=== PATIENT | male | born 1945 | race Caucasian/White ===

== ENCOUNTER 2019-11-21 09:33 | Outpatient (CLI) | payer MEDICARE, OTHER ==
--- NOTE | 2019-11-21 10:51 | RAD ---
4 views lumbar spine: 11/21/2019 COMPARISON: None HISTORY: Lumbar radiculopathy, low back pain FINDINGS: There is facet hypertrophy bilaterally at L4-5 and L5-S1. On the neutral lateral exam there is 6 mm of anterolisthesis of L4 on L5. There is mild posterior osteophyte formation at L3-4 with associated mild posterior disc space narrowing. On the flexion imaging there is anterolisthesis of L4 on L5 measuring approximately 9 mm and there is mild anterolisthesis on flexion imaging at L5-S1 measuring approximately 4 mm. On the extension imaging the anterolisthesis at L4-5 measures 4 mm and is not appreciated at L5-S1. IMPRESSION: Lower lumbar spine facet hypertrophy with anterolisthesis of L4 on L5, most prominent wit h flexion.
--- NOTE | 2019-11-21 10:52 | CT ---
CT LUMBAR SPINE WITHOUT CONTRAST: INDICATIONS: 73-year-old male with low back pain, radiculopathy and left leg paresthesias; probable has been occur ring for 15 years but recently has worsened. COMPARISON: Lumbar spinal radiographs dated November 21, 2019 at 10:01 AM TECHNIQUE: Multiple CT images were obtained of the lumbar spine without contrast. Axial, coronal, and sagittal r eformatted images were constructed from the raw data. FINDINGS: Visualized retroperitoneal and paravertebral soft tissues: There are mild vascular calcifications see n involving the visualized vasculature. The gallbladder is surgically absent. No lymphadenopathy or free fluid is demonstrated. There are a few scattered colonic diverticula involving visualized aspect s of the sigmoid colon. Spinal alignment: There is grade 1 anterolisthesis of L4 on L5. Spinal alignment otherwise is within normal limits. Spinal instrumentation or postsurgical change: None At L5-S1, at the L5-S1 level, there is a mild broad-based disc bulge with loss of disc space height a nd facet hypertrophy inducing at least moderate bilateral neural foraminal narrowing. No appreciable central canal narrowing is evident. There is moderate right and mild left facet osteoarth rosis.. At L4-5, there is a broad-based disc bulge with severe facet degenerative change and suspected ligame ntum flavum hypertrophy inducing at least moderate osseous central canal narrowing with [id number] bilateral osseous neural foraminal narrowing. At L3-4, there is a broad-based disc bulge with facet hypertrophy and suspected ligament flavum hyper trophy at least inducing mild central canal narrowing with at least mild bilateral neural foraminal narrowing. At L2-3, there is a broad-based bulge but no definite appreciable central canal or neural foraminal n arrowing. At L1-L2, there is a minimal broad-based bulge but no appreciable central canal or neural foraminal n arrowing At T12-L1, there is no appreciable central canal or neuroforaminal narrowing. IMPRESSION: 1. Moderate spondylosis of the lumbar spine most pronounced at L4-5 where there is grade 1 anterolis thesis, severe facet osteoarthrosis and a broad-based disc bulge inducing at least moderate osseous central canal narrowing and mild to moderate bilateral osseous neural foraminal narrowing. 2. Moderate bilateral osseous neural foraminal narrowing at L5-S1 due to loss of disc space height, f acet hypertrophy and a broad-based disc bulge. 3. Mild suspected central canal and bilateral neural foraminal narrowing at L3-4 due to degenerative change.
--- NOTE | 2019-11-21 11:17 | MRI ---
MR the lumbar spine without contrast: 11/21/2019 History: Back pain COMPARISON: None. TECHNIQUE: Multiplanar multisequence MR images were obtained of lumbar spine without IV contrast FINDINGS: On the basis of 5 lumbar type vertebral bodies, conus medullaris terminates at [id number] level. Sagittal STIR imaging demonstrates no focal area of osseous marrow edema. T12-L1:Intervertebral disc height and signal intensity within normal limits. No central canal or neur al foraminal stenosis. L1-2:There is disc desiccation and mild disc space narrowing. Mild bilateral facet hypertrophy with n o significant central canal or neural foraminal stenosis. L2-3:There is mild disc desiccation. Mild bilateral facet hypertrophy. No significant central canal o r neural foraminal stenosis. L3-4:There is mild disc space narrowing with disc desiccation. Bilateral facet hypertrophy and hypert rophy of the ligamentum flavum noted. Mild bilateral neural foraminal stenosis. No significant central canal stenosis. L4-5:Severe bilateral facet hypertrophy with prominent hypertrophy of the ligamentum flavum. There is disc space narrowing with disc desiccation and mild disc bulge. Mild anterolisthesis noted measuring approximately 5 mm. Moderate central canal stenosis/right lateral recess stenosis. Mild/mod erate bilateral neural foraminal stenosis. L5-S1:Mild disc space narrowing with disc desiccation and mild disc bulge. Mild central canal stenosi s. Bilateral facet hypertrophy, left greater than right. Mild left neural foraminal stenosis. No significant right neural foraminal stenosis. Image retroperitoneal structures demonstrateno acute findings. IMPRESSION: Multilevel lumbar spine degenerative change, most prominent at the L4-5 level as described above.
== END 2019-11-21 09:34 | disposition home or self-care (01) ==
LOC: BICMRI 09:33
PROVIDERS: ATTEND Physician Assistant Surgical
DX: M47.26 Other spondylosis with radiculopathy, lumbar region (principal); R20.2 Paresthesia of skin; M54.5 Low back pain; M48.07 Spinal stenosis, lumbosacral region; M43.16 Spondylolisthesis, lumbar region
CPT/HCPCS: 72110; 72131; 72148

== ENCOUNTER 2020-03-19 06:34 | Outpatient (CLI) | payer MEDICARE, OTHER ==
[2020-03-19 11:07] LABS: Hemoglobin 16.3 g/dL (14.0-18.0); Mean Corpuscular HGB CONC 32.4 g/dL (32.0-36.0); Mean Corpuscular Hemoglobin 30.4 pg (27.0-31.0); Mean Platelet Volume 10.4 fL (7.4-10.4); Platelet Count 237 thou/uL (130-400); Red Blood Cell (RBC) Count 5.35 mill/uL (4.70-6.10); White Blood Cell (WBC) Count 7.2 thou/uL (4.8-10.8)
[2020-03-19 12:10] LABS: Anion Gap 13 mmol/L (10-20); BUN (Urea Nitrogen) 14 mg/dL (8.4-25.7); Calc. Creatinine Clearance 0 mL/min (70-130); Calcium 9.2 mg/dL (7.8-10.44); Carbon Dioxide 23 mmol/L (23-31); Chloride 110 mmol/L (98-107); Estimated GFR-MDRD 70; Glucose 100 mg/dL (83-110); Potassium 4.4 mmol/L (3.5-5.1); Sodium 142 mmol/L (136-145)
[2020-03-19 12:22] LABS: INR-International Normal Ratio 0.9; Prothrombin Time 12.5 sec (12.0-14.7)
[2020-03-19 12:23] LABS: PTT 33.2 sec (22.9-36.1)
[2020-03-20 12:15] LABS: SARS-CoV-2 MS2 Positive; SARS-CoV-2 N Gene Negative; SARS-CoV-2 S Gene Negative; SARS-CoV-2 orf1ab Negative
--- NOTE | 2020-03-22 11:47 | EKG ---
Test Reason : Blood Pressure : / mmHG Vent. Rate : 057 BPM Atrial Rate : 057 BPM P-R Int : 172 ms QRS Dur : 088 ms QT Int : 424 ms P-R-T Axes : 060 -32 035 degrees QTc Int : 412 ms Sinus bradycardia Left axis deviation Abnormal ECG Confirmed by EMMETT DALE ([id number]) on 03/22/2020 11:46:46 AM Referred By: STEPHANIE Confirmed By:EMMETT DALE
== END 2020-03-19 06:35 | disposition home or self-care (01) ==
LOC: LABBT 06:34
PROVIDERS: ATTEND Surgery
DX: Z01.818 Encounter for other preprocedural examination (principal); Z11.59 Encounter for screening for other viral diseases; M54.16 Radiculopathy, lumbar region; M48.061 Spinal stenosis, lumbar region without neurogenic claudication
CPT/HCPCS: 80048; 85027; 85610; 85730; 93005; U0003; 87635; 93010

== ENCOUNTER 2020-03-23 07:48 | Day surgery (SDC) | payer MEDICARE, OTHER ==
[2020-03-18 12:15] VITALS: BMI 31.0
[2020-03-23] MEDS ORDERED: Fentanyl 100 MCG/2 ML VIAL ONE ×4 (08:23→13:43)
[2020-03-23] MEDS ORDERED: Lidocaine 2% Jelly 5 ML TUBE ONE (08:24)
[2020-03-23] MEDS ORDERED: Thrombin 5000 UNITS/5 ML VIAL ONE (08:36)
[2020-03-23] MEDS ORDERED: Ondansetron PF 4 MG/2 ML Vial IVP PRN (11:23)
[2020-03-23] MEDS ORDERED: Acetaminophen 325 MG TAB PO PRN (11:23)
[2020-03-23] MEDS ORDERED: Milk Of Magnesia 30 ML UDCUP PO PRN (11:23)
[2020-03-23] MEDS ORDERED: traMADol HCl 50 MG TAB PO PRN (11:23)
[2020-03-23] MEDS ORDERED: Mag-Al 1200 mg/1200 mg/30 ML UDCUP PO PRN (11:23)
[2020-03-23] MEDS ORDERED: Bisacodyl 10 MG SUPP PR PRN (11:23)
[2020-03-23] MEDS ORDERED: tiZANidine HCl 4 MG TAB PO PRN (11:23)
[2020-03-23] MEDS ORDERED: Fleet Enema 133 ML BOT PR PRN (11:23)
[2020-03-23] MEDS ORDERED: Acetaminophen/Codeine 30-300mg Tablet PO PRN (11:23)
[2020-03-23] MEDS ORDERED: Lidocaine 1% PF 5 ML VIAL ONE (11:48)
[2020-03-23] MEDS ORDERED: PHENYLEPHRINE-NS 100 MCG/ML 10 ML SYRINGE ONE (11:48)
[2020-03-23] MEDS ORDERED: PROPOFOL 200 MG/20 ML VIAL ONE (11:48)
[2020-03-23] MEDS ORDERED: Glycopyrrolate 0.2 MG/ML 5 ML SYRINGE ONE (11:48)
[2020-03-23] MEDS ORDERED: Rocuronium Bromide 10 MG/ML (10ML VIAL) ONE (11:48)
[2020-03-23] MEDS ORDERED: Ondansetron PF 4 MG/2 ML Vial ONE (11:48)
[2020-03-23] MEDS ORDERED: Succinylcholine Chloride 20 MG/ML 10 ml SYRINGE FS ONE (11:48)
[2020-03-23] MEDS ORDERED: Dexamethasone 20 MG/5 ML VIAL ONE (11:48)
[2020-03-23] MEDS ORDERED: EPHEDRINE 25 MG/5 ML SYRINGE ONE (11:48)
--- NOTE | 2020-03-23 12:45 | OP ---
DATE OF PROCEDURE: 03/23/2020 BONE CHAR PULLER: Carolina Bolanos PA-C PREPROCEDURE DIAGNOSIS: Lumbar stenosis with low back and leg pain. POSTPROCEDURE DIAGNOSIS: Lumbar stenosis with low back and leg pain. PROCEDURES PERFORMED: L4-L5 and L5-S1 laminectomies, partial facetectomies, and foraminotomies. DESCRIPTION OF PROCEDURE: After informed consent was obtained from the patient, the patient was brought to the OR. Proper patient, pause, and identification were carried out. He was placed under excellent general endotracheal anesthesia and positioned prone on the OR table. All appropriate points were padded. We identified the L4-L5 and L5-S1 dorsal spines and lamina. A linear afia was made over this region. This area was sterilely cleansed, prepared and draped. Proper patient, pause, and identification were carried out. We then opened the wound with a combination of sharp, monopolar, and blunt dissection. The L4-L5 and L5-S1 dorsal spines and lamina were exposed. Localization film confirmed area of interest. We then performed a L4 through S1 laminectomy, partial facetectomy, and foraminotomies with excellent decompression of common dural tube and nerve roots. Copious irrigation occurred throughout as did maximizing hemostasis. The wound was then closed in anatomic layers following sprinkling of vancomycin powder. The patient emerged from anesthesia. Job ID: [id number]
[2020-03-23] MEDS: Morphine 2 MG/ML SYRINGE SLOW IVP PRN ×3 (17:13→22:21)
[2020-03-23] MEDS: CEFAZOLIN 2 GM in Premix Bag 1 BAG IVPB SCH (17:17)
[2020-03-23] MEDS: Sodium Chloride 0.9% 1,000 ML IV SCH (17:18)
[2020-03-23] MEDS: HYDROcodone/Acetaminophen 7.5/325 mg Tablet PO PRN (19:45)
[2020-03-23] MEDS ORDERED: Allopurinol 300 MG TAB PO SCH (21:00)
[2020-03-23] MEDS ORDERED: Tamsulosin HCl 0.4 MG CAP PO SCH (21:00)
[2020-03-23] MEDS ORDERED: Finasteride 5 MG TAB PO SCH (21:00)
[2020-03-24] MEDS: CEFAZOLIN 2 GM in Premix Bag 1 BAG IVPB SCH (01:31)
[2020-03-24] MEDS: Morphine 2 MG/ML SYRINGE SLOW IVP PRN ×2 (01:31→07:05)
[2020-03-24] MEDS: HYDROcodone/Acetaminophen 7.5/325 mg Tablet PO PRN ×2 (01:32→07:04)
[2020-03-24 04:50] VITALS: BP 97/52
[2020-03-24] MEDS: Sodium Chloride 0.9% 1,000 ML IV SCH (07:00)
[2020-03-24 08:12] VITALS: TEMP 98.7
--- NOTE | 2020-03-24 09:38 | PRG ---
DATE OF SERVICE: Mr. Espinoza is doing well, postoperative day 1 from L4-S1 laminectomy. He is mobilizing neurologically intact. We went over intra and postoperative issues. He will be dismissed. Job ID: [id number]
== END 2020-03-24 10:15 | disposition home or self-care (01) ==
LOC: SDC 07:48 → 3SE 11:23 → SDC 03-24 10:15
PROVIDERS: ATTEND Surgery
PROC: 01NB0ZZ Release Lumbar Nerve, Open Approach (ICD-10-PCS; principal; 2020-03-23)
DX: M48.061 Spinal stenosis, lumbar region without neurogenic claudication (principal); M54.16 Radiculopathy, lumbar region; M19.90 Unspecified osteoarthritis, unspecified site; N40.0 Benign prostatic hyperplasia without lower urinary tract symptoms; Z79.82 Long term (current) use of aspirin; Z79.899 Other long term (current) drug therapy; Z88.1 Allergy status to other antibiotic agents
CPT/HCPCS: 76000; J0690; J1100; J2001; J2270; J2405; J2704; J3010; J3370

== ENCOUNTER 2020-04-29 08:12 | Outpatient (CLI) | payer MEDICARE, OTHER ==
--- NOTE | 2020-04-29 09:29 | CT ---
EXAM: CT ANGIOGRAM OF THE HEAD AND NECK INDICATION: Bilateral tinnitus, long-standing. COMPARISON: None TECHNIQUE: CT angiogram of the head and neck are performed in the axial plane. Three-dimensional refo rmatted images are submitted for interpretation. FINDINGS: CTA OF THE HEAD WITH AND WITHOUT CONTRAST: POSTCONTRAST CT OF BRAIN: Pathologic enhancement: No pathologic enhancement the brain. Postcontrast soft tissue neck CT: Aerodigestive tract:Aerodigestive tract is patent. No mucosal abnormality. Sinuses: Previous right sided endoscopic sinonasal surgery. Minimal mucosal thickening of the paranas al sinuses. Adequate mastoid air cell aeration. Orbits: Bilateral ocular lenses are appropriately located. Both globes are intact. Retrobulbar fat is preserved. Symmetric attenuation the optic nerves and ocular rectus muscles. Salivary glands:Appropriate attenuation. Thyroid gland: Appropriate attenuation. Lymph nodes: No evidence of lymphadenopathy by size criteria. Paraspinal muscles: Symmetric attenuation of the sternocleidomastoid muscles. Appropriate attenuation of the paraspinal muscles. Cervical spine:Vertebral body height is maintained. No fracture. No significant central canal stenosi s or significant neural foraminal narrowing. Limited evaluation by technique. Upper mediastinum and lung apices: Chronic lung parenchymal changes CTA OF THE NECK WITH CONTRAST: Aorta: Appropriate enhancement and luminal diameter Right carotid artery: Appropriate enhancement and luminal diameter Left carotid: Appropriate enhancement and luminal diameter Subclavian arteries:Appropriate enhancement and luminal diameter Vertebral arteries:Appropriate enhancement and luminal diameter. Dominant right vertebral artery CTA OF THE BRAIN: Intracranial internal carotid arteries:Minimal atherosclerosis involving the cavernous and paraclinoi d segments. Anterior circulation: Appropriate enhancement and luminal diameter. Intracranial vertebral arteries: Appropriate enhancement and luminal diameter. Visualized PICA artery origins have appropriate enhancement and luminal diameter Posterior circulation: Appropriate enhancement and luminal diameter of the basilar artery as well as bilateral P1 segments Venous structures: No evidence of thrombosis in the visualized sagittal sinus, transverse sinus and s igmoid sinuses. No evidence of a glomus jugulare. No evidence of a dural AV fistula. IMPRESSION: 1. No hemodynamically significant stenosis, occlusion or aneurysmal formation. 2. No evidence of a dural AV fistula.
== END 2020-04-29 08:13 | disposition home or self-care (01) ==
LOC: CT 08:12
PROVIDERS: ATTEND Physician Assistant
DX: R51 Headache (principal)
CPT/HCPCS: 70496; 70498; 82565

== ENCOUNTER 2022-02-28 12:57 | Outpatient (CLI) | payer MEDICARE, OTHER ==
[2022-02-28 13:56] LABS: Bilirubin Neg (Negative); Blood, Urine 10 (Negative); Clarity Clear (Clear); Glucose, Urine (Dipstick) Normal (Negative); Ketone, Urine Negative (Negative); Leukocyte Negative (Negative); Nitrite Negative (Negative); Protein, Urine (Dipstick) Negative (Neg-Trace); Urobilinogen Normal mg/dL (Less than 2)
[2022-02-28 14:05] LABS: Hemoglobin 15.8 g/dL (13.5-17.5); Mean Corpuscular HGB CONC 33.5 g/dL (32.0-36.0); Mean Corpuscular Hemoglobin 30.4 pg (27.0-33.0); Mean Corpuscular Volume 90.9 fl (81.2-95.1); Mean Platelet Volume 11.5 fl (7.4-10.4); Platelet Count 251 10x3/uL (150-450); RBC Distribution Width 14.5 % (11.5-14.5); Red Blood Cell (RBC) Count 5.19 10x6/uL (4.32-5.72); White Blood Cell (WBC) Count 8.8 10x3/uL (3.5-10.5)
[2022-02-28 14:21] LABS: Anion Gap 14 mmol/L (10-20); BUN (Urea Nitrogen) 18 mg/dL (8.4-25.7); Calc. Creatinine Clearance 0 mL/min (70-130); Calcium 9.3 mg/dL (7.8-10.44); Carbon Dioxide 25 mmol/L (23-31); Chloride 108 mmol/L (98-107); Glucose 98 mg/dL (83-110); Potassium 4.3 mmol/L (3.5-5.1); Sodium 143 mmol/L (136-145)
[2022-02-28 14:22] LABS: INR-International Normal Ratio 0.9; PTT 28.1 sec (22.0-33.0); Prothrombin Time 10.1 sec (9.5-12.1)
[2022-02-28 14:24] LABS: RBC/HPF 0-3 HPF (0-3); WBC/HPF 0-3 HPF (0-3)
[2022-02-28 14:25] LABS: Bacteria/HPF Rare-Few HPF (None Seen); Mucous/LPF 2+ LPF (<2+); Squamous Epithelial 0-3 HPF (0-3)
[2022-03-01 00:20] LABS: SARS-CoV-2 PCR by NAA Not Detected (NotDetected)
== END 2022-02-28 12:58 | disposition home or self-care (01) ==
LOC: LABBT 12:57
PROVIDERS: ATTEND Urology
DX: Z01.818 Encounter for other preprocedural examination (principal); N40.1 Benign prostatic hyperplasia with lower urinary tract symptoms; R39.12 Poor urinary stream; Z20.822 Contact with and (suspected) exposure to COVID-19
CPT/HCPCS: 80048; 81001; 85027; 85610; 85730; 87086; 93005; U0003; U0005; 93010

== ENCOUNTER 2022-03-03 07:22 | Day surgery (SDC) | payer MEDICARE, OTHER ==
[2022-03-01 14:07] VITALS: BMI 31.0
[2022-03-03] MEDS ORDERED: B & O ONE (09:32)
[2022-03-03] MEDS ORDERED: cefTRIAXone\\ROCEPHIN 1 GM VIAL ONE (09:38)
[2022-03-03] MEDS ORDERED: Sodium Chloride 0.9% 100 ML ONE (09:38)
[2022-03-03] MEDS ORDERED: PROPOFOL 200 MG/20 ML VIAL ONE (09:46)
[2022-03-03] MEDS ORDERED: Glycopyrrolate 0.2 MG/ML 5 ML SYRINGE ONE (09:46)
[2022-03-03] MEDS ORDERED: Oxybutynin 5 MG TAB ONE (11:10)
[2022-03-03] MEDS ORDERED: HYDROcodone/Acetaminophen 5/325 mg Tablet ONE (11:28)
[2022-03-03] MEDS ORDERED: Morphine 2 MG/ML VIAL ONE (11:32)
== END 2022-03-03 14:29 | disposition home or self-care (01) ==
LOC: SDC 07:22
PROVIDERS: ATTEND Urology
PROC: 0T7D8DZ Dilation of Urethra with Intraluminal Device, Via Natural or Artificial Opening Endoscopic (ICD-10-PCS; principal; 2022-03-03)
DX: N40.1 Benign prostatic hyperplasia with lower urinary tract symptoms (principal); Z79.82 Long term (current) use of aspirin; Z79.899 Other long term (current) drug therapy; Z88.1 Allergy status to other antibiotic agents
CPT/HCPCS: C9740; J2270; L8699; J0696; J2704; J3490

== ENCOUNTER 2022-07-24 13:30 | Inpatient (IN) | payer MEDICARE, OTHER ==
[2022-07-24 14:33] VITALS: BMI 29.5
[2022-07-24 14:40] LABS: Hemoglobin 15.5 g/dL (13.5-17.5); Mean Corpuscular HGB CONC 33.3 g/dL (32.0-36.0); Mean Corpuscular Hemoglobin 30.5 pg (27.0-33.0); Mean Corpuscular Volume 91.7 fl (81.2-95.1); Mean Platelet Volume 11.9 fl (7.4-10.4); Platelet Count 225 10x3/uL (150-450); RBC Distribution Width 14.6 % (11.5-14.5); Red Blood Cell (RBC) Count 5.08 10x6/uL (4.32-5.72); White Blood Cell (WBC) Count 7.4 10x3/uL (3.5-10.5)
[2022-07-24 14:58] LABS: Anion Gap 15 mmol/L (10-20); BUN (Urea Nitrogen) 20 mg/dL (8.4-25.7); Calc. Creatinine Clearance 0 mL/min (70-130); Calcium 9.2 mg/dL (7.8-10.44); Carbon Dioxide 26 mmol/L (23-31); Chloride 109 mmol/L (98-107); Estimated GFR 87; Glucose 118 mg/dL (83-110); INR-International Normal Ratio 0.9; PTT 28.2 sec (22.0-33.0); Potassium 4.6 mmol/L (3.5-5.1); Sodium 145 mmol/L (136-145)
[2022-07-26] MEDS ORDERED: Thrombin 5000 UNITS/5 ML VIAL ONE (06:54)
[2022-07-26] MEDS ORDERED: Phenylephrine 10 MG/ML VIAL ONE (07:15)
[2022-07-26] MEDS ORDERED: HYDROmorphone 0.5 MG/0.5 ML SYRINGE ONE (07:15)
[2022-07-26] MEDS ORDERED: fentaNYL Citrate/PF 100 MCG/2 ML SYRINGE ONE (07:15)
[2022-07-26] MEDS ORDERED: Sodium Chloride 0.9% 100 ML ONE (07:16)
[2022-07-26] MEDS ORDERED: CEFAZOLIN 2 GM VIAL ONE (07:16)
[2022-07-26] MEDS ORDERED: Rocuronium Bromide 10 MG/ML (10ML VIAL) ONE (07:46)
[2022-07-26] MEDS ORDERED: Dexamethasone 20 MG/5 ML VIAL ONE (07:46)
[2022-07-26] MEDS ORDERED: Ondansetron PF 4 MG/2 ML Vial ONE (07:46)
[2022-07-26] MEDS ORDERED: NEOSTIGMINE 3 MG/3 ML SYR 3 MG/3 ML SYRINGE ONE (07:46)
[2022-07-26] MEDS ORDERED: PROPOFOL 200 MG/20 ML VIAL ONE (07:46)
[2022-07-26] MEDS ORDERED: Glycopyrrolate 0.2 MG/ML 5 ML SYRINGE ONE (07:46)
[2022-07-26] MEDS ORDERED: PHENYLEPHRINE-NS 100 MCG/ML 10 ML SYRINGE ONE (07:46)
[2022-07-26] MEDS ORDERED: ePHEDrine 50 MG/ML VIAL ONE (07:46)
[2022-07-26] MEDS ORDERED: HYDROmorphone 2 MG/ML VIAL SLOW IVP PRN (10:23)
[2022-07-26] MEDS ORDERED: Promethazine HCl 25 MG/ML VIAL IVPB PRN (10:23)
[2022-07-26] MEDS ORDERED: Ondansetron HCl/PF 4 MG/2 ML Vial IVP PRN (10:23)
[2022-07-26] MEDS ORDERED: Promethazine HCl 25 MG/ML VIAL IM PRN (10:23)
[2022-07-26] MEDS ORDERED: PACU-Morphine 4MG/ML VIAL SLOW IVP PRN (10:23)
[2022-07-26] MEDS ORDERED: traMADol HCl 50 MG TAB PO PRN (10:35)
[2022-07-26] MEDS ORDERED: diphenhydrAMINE 25 MG CAP PO PRN (10:35)
[2022-07-26] MEDS ORDERED: Ondansetron PF 4 MG/2 ML Vial IVP PRN (10:35)
[2022-07-26] MEDS ORDERED: Acetaminophen/Codeine 30-300mg Tablet PO PRN (10:35)
[2022-07-26] MEDS ORDERED: Morphine 2 MG/ML VIAL SLOW IVP PRN (10:35)
[2022-07-26] MEDS ORDERED: tiZANidine HCl 4 MG TAB PO PRN (10:36)
[2022-07-26] MEDS ORDERED: Chloraseptic Spray 180 ml Bottle PO PRN (10:36)
[2022-07-26] MEDS ORDERED: Cepastat Lozenges 1 LOZ PO PRN (10:36)
[2022-07-26] MEDS ORDERED: hydrALAZINE 20 MG/ML VIAL SLOW IVP PRN (10:36)
[2022-07-26] MEDS ORDERED: Morphine 4 MG/ML VIAL SLOW IVP PRN (11:05)
[2022-07-26] MEDS ORDERED: CeleCOXIB 100 MG CAP PO SCH (13:30)
[2022-07-26] MEDS: Acetaminophen 325 MG TAB PO PRN ×2 (13:32→19:34)
[2022-07-26] MEDS: CeleCOXIB 100 MG CAP PO SCH ×2 (13:33→19:36)
[2022-07-26] MEDS: Sodium Chloride 0.9% 1,000 ML IV SCH (13:34)
[2022-07-26] MEDS ORDERED: CEFAZOLIN 2 GM in Sodium Chloride 0.9% 100 ML IVPB SCH (14:00)
[2022-07-26] MEDS: CEFAZOLIN 2 GM in Sodium Chloride 0.9% 100 ML IVPB SCH ×2 (16:04→23:18)
[2022-07-26] MEDS: Allopurinol 300 MG TAB PO SCH (19:36)
[2022-07-26] MEDS ORDERED: Non-Formulary Item 1 EACH (Celecoxib [Celebrex] 200 MG Capsule) PO SCH (21:00)
[2022-07-26] MEDS: HYDROcodone/Acetaminophen 7.5/325 mg Tablet PO PRN (21:26)
[2022-07-26] MEDS: Fluticasone Propionate Nasal Spray 16 gm Bottle NASAL SCH (21:27)
[2022-07-27] MEDS ORDERED: Dexamethasone 10 MG/ML VIAL SLOW IVP SCH (00:15)
[2022-07-27] MEDS: Sodium Chloride 0.9% 1,000 ML IV SCH ×2 (00:41→18:23)
[2022-07-27] MEDS: HYDROcodone/Acetaminophen 7.5/325 mg Tablet PO PRN (03:30)
[2022-07-27] MEDS: CeleCOXIB 100 MG CAP PO SCH ×2 (08:30→20:35)
[2022-07-27] MEDS: CEFAZOLIN 2 GM in Sodium Chloride 0.9% 100 ML IVPB SCH ×3 (08:30→23:44)
[2022-07-27] MEDS: Dexamethasone 4 MG TAB PO SCH ×3 (09:34→20:36)
[2022-07-27] MEDS ORDERED: Bisacodyl 5 MG TAB PO PRN (15:07)
[2022-07-27] MEDS ORDERED: Polyethylene Glycol 3350 17 GM Packet PO PRN (15:07)
[2022-07-27 17:32] VITALS: BP 160/81; TEMP 97.8
[2022-07-27] MEDS: Docusate 100 MG CAP PO SCH (20:34)
[2022-07-27] MEDS: Fluticasone Propionate Nasal Spray 16 gm Bottle NASAL SCH (20:34)
[2022-07-27] MEDS: Allopurinol 300 MG TAB PO SCH (20:35)
[2022-07-28] MEDS: Sodium Chloride 0.9% 1,000 ML IV SCH (00:58)
[2022-07-28] MEDS: Dexamethasone 4 MG TAB PO SCH (01:51)
[2022-07-28] MEDS: CEFAZOLIN 2 GM in Sodium Chloride 0.9% 100 ML IVPB SCH (08:57)
[2022-07-28] MEDS: CeleCOXIB 100 MG CAP PO SCH (08:58)
[2022-07-28] MEDS: Docusate 100 MG CAP PO SCH (08:58)
[2022-07-28] MEDS ORDERED: Dexamethasone 1 MG TAB PO SCH (09:00)
== END 2022-07-28 11:20 | disposition home or self-care (01) | DRG 473 ==
LOC: SURG A 07-26 06:04 → SURG B 07-26 13:01
PROVIDERS: ADMIT Surgery; ATTEND Surgery
PROC: 0RG2070 Fusion of 2 or more Cervical Vertebral Joints with Autologous Tissue Substitute, Anterior Approach, Anterior Column, Open Approach (ICD-10-PCS; principal; 2022-07-26)
PROC: 0RB30ZZ Excision of Cervical Vertebral Disc, Open Approach (ICD-10-PCS; 2022-07-26)
PROC: 01N10ZZ Release Cervical Nerve, Open Approach (ICD-10-PCS; 2022-07-26)
DX: M48.02 Spinal stenosis, cervical region (principal); M54.12 Radiculopathy, cervical region; Z20.822 Contact with and (suspected) exposure to COVID-19; R13.10 Dysphagia, unspecified; M10.9 Gout, unspecified; N40.0 Benign prostatic hyperplasia without lower urinary tract symptoms; E66.9 Obesity, unspecified; Z88.1 Allergy status to other antibiotic agents; Z90.49 Acquired absence of other specified parts of digestive tract; Z79.899 Other long term (current) drug therapy; Z87.891 Personal history of nicotine dependence; Z68.29 Body mass index [BMI] 29.0-29.9, adult
CPT/HCPCS: 76000; 80048; 85027; 85610; 85730; 86850; 86900; 86901; 93005; 93010; C1713; J0690; J1100; J1170; J2370; J2405; J2704; J3370; J3490; J7050; J8540

== ENCOUNTER 2022-07-24 13:53 | Outpatient (CLI) | payer MEDICARE, OTHER | END 2022-07-24 13:54 | disposition home or self-care (01) | LOC: LABBT 13:53 | PROVIDERS: ATTEND Surgery | DX: Z01.810 Encounter for preprocedural cardiovascular examination (principal); M48.02 Spinal stenosis, cervical region; M50.10 Cervical disc disorder with radiculopathy, unspecified cervical region | CPT/HCPCS: 80048; 85027; 85610; 85730; 93005; 93010 ==

== ENCOUNTER 2022-08-29 09:14 | Outpatient (CLI) | payer MEDICARE, OTHER | END 2022-08-29 09:15 | disposition home or self-care (01) | LOC: BICRAD 09:14 | PROVIDERS: ATTEND Surgery | DX: M54.12 Radiculopathy, cervical region (principal); M47.892 Other spondylosis, cervical region; M77.9 Enthesopathy, unspecified | CPT/HCPCS: 72040 ==